=== PATIENT | female | born 1960 | race Caucasian/White ===

== ENCOUNTER 2016-04-17 10:38 | Emergency (ER) | payer BC ==
[2016-04-17 10:47] VITALS: BP 138/79; PULSE 100; TEMP 97.8; BMI 35.8
[2016-04-17 11:12] LABS: URINE APPEARANCE CLOUDY; URINE BILIRUBIN NEGATIVE (NEGATIVE); URINE GLUCOSE (UA) NEGATIVE (NEGATIVE); URINE KETONE NEGATIVE (NEGATIVE); URINE NITRITE NEGATIVE (NEGATIVE); URINE UROBILINOGEN NEGATIVE E.U./dl (0.2-1.0)
[2016-04-17 11:13] LABS: URINE BLOOD 3+ (NEGATIVE); URINE LEUK ESTERASE TRACE (NEGATIVE); URINE PROTEIN 2+ (NEGATIVE)
[2016-04-17 11:14] LABS: URINE COLOR AMBER
--- NOTE | 2016-04-17 11:17 | PDOC ---
History of Present Illness - General Chief Complaint: Urinary Problem Stated Complaint: POSSIBLE UTI Time Seen by Provider: 04/17/16 10:57 History Source: Patient Exam Limitations: No Limitations - History of Present Illness Initial Comments: 04/17/16 11:37 55 yr female history of HTN presents with 3 days discomfort with urination, noticed blood in urine. C/o chills, night sweats and low back pain left side. denies vomiting, c/o nausea no diarrhea. Pt recently took Zpack for throat infection, denies vaginal discharge or pain LMP 2 yrs ago. 04/17/16 11:41 Past History - Past Medical History Allergies/Adverse Reactions: Allergies Allergy/AdvReac Type Severity Reaction Status Date / Time No Known Allergies Allergy Verified 04/17/16 10:47 Home Medications: Ambulatory Orders Carvedilol 6.25 mg PO BID 04/17/16 Cephalexin [Keflex] 500 mg PO TID #21 capsule 04/17/16 Olmesartan Medoxomil [Benicar (Nf)] 20 mg PO DAILY 04/17/16 Phenazopyridine HCl [Pyridium] 200 mg PO TID #6 tablet 04/17/16 HTN: Yes - Reproductive History Is Patient Now?: No - Psycho/Social/Smoking Cessation Hx Suicidal Ideation: No Smoking History: Never smoked Information on smoking cessation initiated: No Review of Systems - Review of Systems Able to Perform ROS?: Yes Is the patient limited French proficient: No Constitutional: Yes: Chills, Fever HEENTM: Yes: Throat Pain : Yes: Hematuria, Pain Musculoskeletal: Yes: Back Pain *Physical Exam - Vital Signs Last Vital Signs Temp Pulse Resp BP Pulse Ox 97.8 F 100 H 18 138/79 99 04/17/16 10:43 04/17/16 10:43 04/17/16 10:43 04/17/16 10:43 04/17/16 10:43 - Physical Exam General Appearance: Yes: Nourished, Appropriately Dressed HEENT: positive: EOMI, SARAHY, Normal ENT Inspection, TMs Normal, Pharynx Normal, Pharyngeal Erythema Neck: positive: Supple Respiratory/Chest: positive: Lungs Clear, Normal Breath Sounds Cardiovascular: positive: Regular Rhythm, Regular Rate Gastrointestinal/Abdominal: positive: Normal Bowel Sounds, Soft Musculoskeletal: positive: Normal Inspection. negative: CVA Tenderness, CVA Tenderness (R), CVA Tenderness (L) Extremity: positive: Normal Capillary Refill, Normal Inspection Integumentary: positive: Normal Color, Dry, Warm Neurologic: positive: Fully Oriented, Alert, Normal Mood/Affect, Normal Response , Motor Strength 5/5 Critical Care Time/MDM Note - Medical Decision Making Note: 04/17/16 13:00 cc: chills, low back pain, urinary discomfort with hematuria neg CVA tenderness non toxic appearing will r/o kidney infection no vomiting Discharge Disposition - Diagnosis Urinary tract infection Qualifiers: Urinary tract infection type: acute cystitis Hematuria presence: with hematuria Qualified Code(s): N30.01 - Acute cystitis with hematuria - Discharge Dispostion Disposition: HOME Condition at time of disposition: Good - Prescriptions Prescriptions: Cephalexin [Keflex] 500 mg PO TID #21 capsule Phenazopyridine HCl [Pyridium] 200 mg PO TID #6 tablet - Patient Instructions Additional Instructions: drink pleanty of water about 1-2 liters a day take pyridium as directed for pain , this will turn urine orange that is normal take the antibiotic as prescribed take motrin 600mg every 6hrs for fever as needed or tylenol 650mg every 4-6hrs follow with your doctor this coming week return to ER for any vomiting, fever, worsening symptoms
[2016-04-17 11:19] LABS: GRANULAR CASTS 34 /lpf; URINE HYALINE CAST 205 /lpf; URINE MUCUS MANY; URINE RBC 5059 /hpf (0-3); URINE WBC 13 /hpf (3-5)
[2016-04-17 11:37] LABS: MCH 30.3 pg (25.7-33.7); MCHC 34.4 g/dl (32.0-36.0); MEAN PLT VOLUME 7.2 fl (7.5-11.1); PLATELET COUNT 299 K/MM3 (134-434); WHITE BLOOD COUNT 10.8 K/mm3 (4.0-10.0)
[2016-04-17 12:01] LABS: ALBUMIN 3.5 g/dl (3.4-5.0); ANION GAP 10 (8-16); CALCIUM 9.5 mg/dL (8.5-10.1); CO2 27 mmol/L (21-32); CREATININE 0.8 mg/dL (0.55-1.02); GLUCOSE,RANDOM 113 mg/dL (74-106); SGOT/AST 13 U/L (15-37); SGPT/ALT 23 U/L (12-78)
[2016-04-17 12:03] LABS: ALK PHOS 44 U/L (45-117); BILIRUBIN,TOTAL 0.4 mg/dL (0.2-1.0); TOT PROT 7.7 g/dl (6.4-8.2)
[2016-04-17] MEDS ORDERED: CEFTRIAXONE 1,000 MG in DEXTROSE 5%-WATER - 50 ML IVPB ONE (12:11)
[2016-04-17] MEDS ORDERED: PHENAZOPYRIDINE HCL 100 MG TABLET (FP) PO STA (12:13)
[2016-04-17] MEDS ORDERED: PHENAZOPYRIDINE HCL 100 MG TABLET (FP) ONE (13:09)
[2016-04-17] MEDS ORDERED: CEFTRIAXONE 50 ML ONE (13:11)
== END 2016-04-17 14:52 | disposition home or self-care (01) ==
LOC: JERFT 10:38
DX: N30.01 Acute cystitis with hematuria (principal); I10 Essential (primary) hypertension
CPT/HCPCS: 36415; 76775-TC; 76856-TC; 80053; 81003; 81015; 85027; 87086; 99282-25